=== PATIENT | female | born 1985 | race Two or more races ===

== ENCOUNTER 2022-12-28 16:49 | Emergency (ER) | payer MEDICAID, OTHER ==
[~2022-12-28] VITALS: Ht 162.6 cm; Wt 73.6 kg
[2022-12-28 18:48] VITALS: BP 130/94; PULSE 94; RESP 16; TEMP 97.9; O2SAT 100
[2022-12-28] MEDS ORDERED: HYDROcodone-ACET 5/325MG TAB PO ONE (20:15)
[2022-12-28] MEDS ORDERED: METHOCARBAMOL 500 MG TAB PO ONE (20:45)
[2022-12-28] MEDS ORDERED: DexAMETHasone SOD PHOS 10MG/1ML VIAL INJ IM ONE (20:45)
== END 2022-12-28 22:21 | disposition home or self-care (01) ==
LOC: ER 16:49
DX: S33.5XXA Sprain of ligaments of lumbar spine, initial encounter (principal); X50.1XXA Overexertion from prolonged static or awkward postures, initial encounter; Y93.89 Activity, other specified; Y92.89 Other specified places as the place of occurrence of the external cause; Y99.8 Other external cause status
CPT/HCPCS: 72100; 96372; 99283; J1100

== ENCOUNTER 2023-07-16 10:18 | Emergency (ER) | payer MEDICAID ==
[~2023-07-16] VITALS: Ht 162.6 cm; Wt 75.3 kg
[2023-07-16 12:07] LABS: Basophils # (auto) 0 10 ^3/uL (0-0.2); Eosinophils # (auto) 0.2 10 ^3/uL (0-0.8); Lymphocytes # (auto) 1.6 10 ^3/uL (0.4-5.4); Monocytes # (auto) 0.7 10 ^3/uL (0-1.3); Neutrophils # (auto) 4.3 10 ^3/uL (1.6-8.6)
[2023-07-16 12:09] LABS: Basophils % (auto) 0.7 % (0.0-2.0); Eosinophils % (auto) 2.3 % (0.0-7.0); Hematocrit 33.7 % (36.0-46.0); Hemoglobin 10.7 g/dL (12.2-16.2); Lymphocytes % (auto) 23.1 % (10.0-50.0); Mean Corpuscular Hemoglobin 25.2 pg (28.0-32.0); Mean Corpuscular Hgb Conc. 31.8 g/dL (32.0-36.0); Mean Corpuscular Volume 79.1 fL (80.0-100.0); Monocytes % (auto) 10.1 % (0.0-12.0); Neutrophils % (auto) 63.8 % (37.0-80.0); Red Blood Cells 4.26 10^6/uL (4.0-5.20); Red Cell Distribution Width 17.3 % (11.8-14.3); White Blood Cell 6.8 10^3/uL (4.4-10.8)
[2023-07-16 12:20] LABS: Chloride 105 mmol/L (98-107); Potassium 3.9 mmol/L (3.5-5.1); Sodium 138 mmol/L (136-145)
[2023-07-16 12:21] LABS: Anion Gap 5 (5-15); Carbon Dioxide 28 mmol/L (20-30)
[2023-07-16 12:24] LABS: INR 1.05 (0.9-1.15); Partial Thromboplastin Time 29.1 SEC (24.5-34.5)
[2023-07-16 12:26] LABS: BUN/Creatinine Ratio 13.6 (10.0-20.0); Blood Urea Nitrogen 9 mg/dL (9-23); Glucose 91 mg/dL (74-106)
[2023-07-16 13:44] VITALS: BP 101/60; PULSE 63; RESP 17; TEMP 98.4; O2SAT 99
[2023-07-16 14:01] LABS: Urine Bacteria FEW /hpf (None Seen); Urine Blood Negative /uL (Negative); Urine Clarity Clear (Clear); Urine Protein, UAD Negative (Negative); Urine Specific Gravity 1.016 (1.001-1.035); Urine Sperm PRESENT /hpf (None Seen); Urine Urobilinogen Normal (Negative); Urine WBC 1 /hpf (0 - 5); Urine pH 5.5 (5.0-8.0)
[2023-07-16 14:02] LABS: Urine Color Straw (Yellow)
== END 2023-07-16 13:46 | disposition home or self-care (01) ==
LOC: ER 10:18
DX: D64.9 Anemia, unspecified (principal); D68.00 Von Willebrand disease, unspecified; Z90.49 Acquired absence of other specified parts of digestive tract
CPT/HCPCS: 36415; 80048; 81001; 85025; 85610; 85730; 86850; 86900; 86901

== ENCOUNTER 2024-04-24 16:55 | Emergency (ER) | payer MEDICAID ==
[~2024-04-24] VITALS: Ht 162.6 cm; Wt 73.4 kg
[2024-04-24 17:05] VITALS: BP 121/88; PULSE 69; RESP 18; O2SAT 95
[2024-04-24] MEDS ORDERED: TETANUS-DIPTH-ACEL PERTUSSIS 0.5ML SYR Tdap IM ONE (17:15)
--- NOTE | 2024-04-24 17:28 | ED.PDOC ---
History of Present Illness HPI Comments 39F presents to the ER w/ no prior Hx associated to the c/c of laceration. Pt reports that she cut the tip of her ring finger w/ some glass. PMHx of Anemia, and Von Jeff [place]. SHx of Cholecystectomy, , Tummy Tuck, and breast augmentation. Denies chills, fever, N/V/D, SOB, CP or other associated symptoms, modifiers, or recent injuries at this time. Chief Complaint: Laceration Time Seen by MD: 17:00 Primary Care Provider: none Reviewed Notes: Nurses Notes, Medications, Allergies Allergies: Coded Allergies: NO KNOWN ALLERGIES (Unverified , 12/28/22) Information Source: Patient Mode of Arrival: Ambulatory Severity: Moderate Timing: Minutes Duration: Since onset, Minutes Prehospital treatment: None Past Medical History PAST MEDICAL HISTORY: Anemia Past Medical History (Other): Watson [place] Surgical History: Cholecystectomy, Surgical History (Other): Tummy Tuck and Breast Augmentation [employer] History: Denies all [employer] Hx Family History Family History: Reviewed,noncontributory to illness, Unknown Social History Smoker: Non-Smoker Alcohol: Denies ETOH Use Drugs: Denies Drug Use Lives In: Home Constitutional: reports: others (Laceration); denies: chills, diaphoresis, fatigue, fever, malaise, sweats, weakness EENTM: denies: blurred vision, double vision, ear bleeding, ear discharge, ear drainage, ear pain, ear ringing, eye pain, eye redness, hearing loss, mouth p ain, mouth swelling, nasal discharge, nose bleeding, nose congestion, nose pain, photophobia, tearing, throat pain, throat swelling, voice changes, others Respiratory: denies: cough, hemoptysis, orthopnea, SOB at rest, shortness of br eath, SOB with excertion, stridor, wheezing, others Cardiovascular: denies: chest pain, dizzy spells, diaphoresis, Dyspnea on exertion, edema, irregular heart beat, left arm pain, lightheadedness, palpitations, PND, syncope, others Gastrointestinal: denies: abdomen distended, abdominal pain, blood streaked bowels, constipated, diarrhea, dysphagia, difficulty swallowing, hematemesis, melena, nausea, poor appetite, poor fluid intake, rectal bleeding, rectal pain, vomiting, others Genitourinary: denies: abnormal vagina bleeding, burning, dyspareunia, dysuria, flank pain, frequency, hematuria, incontinence, pain, , vagina discharge, urgency, others Neurological: denies: dizziness, fainting, headache, left sided numbness, left sided weakness, numbness, paresthesia, pre-existing deficit, right sided numbness, right sided weakness, seizure, speech problems, tingling, tremors, weakness, others Musculoskeletal: denies: back pain, gout, joint pain, joint swelling, muscle pain, muscle stiffness, neck pain, others Integumetry: denies: bruises, change in color, change in hair/nails, dryness, laceration, lesions, lumps, rash, wounds, others Allergic/Immunocompromised: denies: Difficulty Healing, Frequent Infections, Hives, Itching, others Hematologic/Lymphatic: denies: anemia, blood clots, easy bleeding, easy bruising, swollen glands, others Endocrine: denies: excessive hunger, excessive sweating, excessive thirst, excessive urination, flushing, intolerance to cold, intolerance to heat, unexplained weight gain, unexplained weight loss, others Psychiatric: denies: anxiety, bipolar disorder, depression, hopeless, panic disorder, schizophrenia, sleepless, suicidal, others All Other Systems: Reviewed and Negative Physical Exam Exam Comments .5 by .5 cm full thickness skin evulsion w/ no active bleeding General Appearance: No Apparent Distress, Normal HEENT: Normal ENT Inspection, Pharynx Normal, TMs Normal Neck: Full Range of Motion, Non-Tender, Normal, Normal Inspection Respiratory: Chest Non-Tender, Lungs Clear, No Accessory Muscle Use, No Respiratory Distress, Normal Breath Sounds Cardiovascular: No Edema, No JVD, No Murmur, No Gallop, Normal Peripheral Pulses, Regular Rate/Rhythm Breast Exam: Deferred Gastrointestinal: No Organomegaly, Non Tender, No Pulsatile Mass, Normal Bowel Sounds, Soft Genitalia: Deferred Pelvic: Deferred Rectal: Deferred Extremities: No calf tenderness, Normal capillary refill, Normal inspection, Normal range of motion, Non-tender, No pedal edema Musculoskeletal : Apperance: Normal Neurologic: Alert, child nurse II-XII nml as Tested, No Motor Deficits, Normal Affect, Normal Mood, No Sensory Deficits Cerebellar Function: Normal Reflexes: Normal Skin: Dry, Normal Color, Warm Lymphatic: No Adenopathy Was a procedure done? Was a procedure done?: No Differential Dx Considerations may include: laceration, skin avulsion, soft tissue FB retention, uncontrolled bleeding X-Ray, Labs, Meds, VS Vital Signs Date Time Temp Pulse Resp B/P (MAP) Pulse Ox O2 Delivery O2 Flow Rate FiO2 04/24/24 17:05 97.9 69 18 121/88 (99) 95 Time of 1ST Reevaluation: 17:30 Reevaluation 1ST: Unchanged Patient Education/Counseling: Diagnosis, Treatment, Prognosis Family Education/Counseling: No Family Present Additional Information I reviewed the following notes from patient's past medical encounters:07/16/23 The following tests were ordered, and results were reviewed by me: PHA I discussed treatment and results with medical personnel pt has a small skin full thickness avulsion, so repair is not needed. the wound is cleaned, dressed. bleeding is controlled, despite of pt's underlying Von Willebrand's disease. pt is stable for discharge. her Tdap has been upated Departure 1 Departure Time of Disposition: 18:58 Impression: Primary Impression: Laceration Disposition: 01 HOME / SELF CARE / HOMELESS Condition: Good Discharged With: Self Critical Care Note Critical Care Time?: No Stability Stability form required: No I personally scribed for GRAHAM GRANDE MD ([email or web address]) on 04/24/24 at 17:28. Electronically submitted by Rocael Trujillo ([email or web address]). GRAHAM GRANDE MD Apr 24, 2024 17:28
== END 2024-04-24 19:47 | disposition left against medical advice (07) ==
LOC: ER 16:55
DX: S61.214A Laceration without foreign body of right ring finger without damage to nail, initial encounter (principal); Z90.49 Acquired absence of other specified parts of digestive tract; W45.8XXA Other foreign body or object entering through skin, initial encounter; Y93.89 Activity, other specified; Y92.89 Other specified places as the place of occurrence of the external cause; Y99.8 Other external cause status
CPT/HCPCS: 90715